=== PATIENT | male | born 1975 | race Caucasian/White ===

== ENCOUNTER 2024-02-16 23:53 | Emergency (ER) | payer OTHER, SELFPAY ==
[2024-02-16 23:57] VITALS: BP 130/82
[2024-02-17 00:15] VITALS: BMI 27.2
--- NOTE | 2024-02-17 00:32 | ED.GENMED ---
History of Present Illness
General
Chief Complaint: Cold/Flu/URI Symptoms
Source: patient
Exam Limitations: none
Time Seen by Provider: 02/17/24 00:20
Travel History
Have you had any contact with someone who has COVID-19?: No
Do you have any symptoms of coronavirus? Fever > 100 degrees, chills, cough, shortness of breath, sore throat, loss of taste or smell, muscle aches, or headache?: No
History of Present Illness
History of Present Illness:
48-year-old otherwise healthy male presents with onset of aches fatigue fever chills headache and some neck stiffness. Some nausea no vomiting. No light sensitivity. He notes a circular rash on the left side. No known tick bites. He is healthy
otherwise. No known sick contacts. No other complaints at this time
Past History
Past History
ED Past Medical History: Other (gout)
ED Past Surgical History: None
Phy Exam
Physical Exam
Physical Exam:
General: Well-appearing male no acute respiratory distress
HEENT: Normocephalic atraumatic neck is supple no adenopathy posterior pharynx without erythema or exudate
Heart: Regular rate and rhythm no murmurs
Lungs: Clear no wheeze or rales
Abdomen is soft nontender nondistended
Neurologic exam: No meningeal signs. No nuchal rigidity. Alert and oriented good muscle tone
Skin: Circular nonraised erythematous rash in the left side. This is nontender no fluctuance or induration
Extremities: No cyanosis
Course
Orders/Labs/Results
Orders:
Orders
02/17/24 00:22
COVID-19 Antigen Urgent
Source: Nasal Swab
Influenza A+B Rapid Molecular Urgent
CARLIN Source: Nasal Swab
Specimen Description:
Date Specimen was Collected: 02/17/24
Time Specimen was Collected: 00:18
02/17/24 00:58
Complete Blood Count/With Diff Urgent
Comprehensive Metabolic Panel Urgent
Lyme Progressive Urgent
02/17/24 01:46
Acetaminophen [Tylenol] 1,000 mg PO NOW STA
02/17/24 01:52
UA Reflex to Culture [Urinalysis Reflex To Culture] Urgent
Date Specimen was Collected: 02/17/24
Time Specimen was Collected: 00:18
Urine Microscopic Reflex Cult Urgent
02/17/24 02:02
Doxycycline [Vibramycin] 100 mg PO NOW STA
Abnormal Lab Results
02/17/24 02/17/24
00:58 01:52
RBC 4.35 L 10^6/uL
(4.70-6.10)
Hct 36.7 L %
(39.0-52.0)
Absolute Lymphs (auto) 0.7 L 10^3/uL
(1.2-3.4)
Neutrophils % 78.4 H %
(42.2-75.2)
Lymphocytes % 12.7 L %
(20.5-51.1)
Sodium 133 L mmol/L
(135-145)
Carbon Dioxide 21 L mmol/L
(22-30)
Glucose 105 H mg/dl
(70-99)
Ur Occult Blood Reflex 2+ A
(Negative)
Urine Bacteria (Reflex) Few A
(Negative)
02/17/24 00:58
02/17/24 00:58
Vital Signs
Initial and Last Documented VS:
Initial Vital Signs
Temp Pulse Resp BP Pulse Ox
98.9 F 88 18 130/82 98
02/16/24 23:57 02/16/24 23:57 02/16/24 23:57 02/16/24 23:57 02/16/24 23:57
Last Documented Vital Signs
Temp Pulse Resp BP Pulse Ox
101.6 F H 63 18 139/82 98
02/17/24 01:46 02/17/24 01:46 02/17/24 01:46 02/17/24 01:46 02/17/24 01:46
MDM/Problems Addressed
Differential Diagnosis Includes:
Myalgias fatigue fever chills. No meningeal signs on exam. Do not suspect meningitis. Rash circular in nature left side question possible insect bite versus erythema migrans of Lyme. Lyme test pending COVID and flu test pending. Urinalysis was
negative
*Critical Care Note
Total Time (30-74mins, 75-104mins- exclusive of procedures): Not Applicable
Update Note
Update Note:
COVID and flu negative. Blood work without significant finding. Lyme test is pending but given the presence of fever and circular rash on the left side will empirically cover for potential for Lyme with doxycycline. A prescription was provided
for this. He is stable for discharge. No indication for admission
ED Attending Note
-
Portions of this chart may have been created with voice recognition software.� Occasional wrong word or��sound alike� substitutions may have occurred due to the inherent limitations of voice recognition software.
Discharge Plan
Departure
Patient Disposition: Home (Routine Discharge)
Date of Disposition: 02/17/24
Time of Disposition: 02:23
Patient with high blood pressure during this ER visit?: No
Discharge Problem:
Fever
Instructions: Fever, Adult (DC)
Prescriptions:
New
doxycycline hyclate 100 mg capsule
100 mg PO BID Qty: 27 0RF
No Action
doxycycline hyclate 100 mg capsule
100 mg PO BID Qty: 14 0RF
tramadol 50 mg tablet
50 mg PO Q4H PRN (Reason: pain) Qty: 14 0RF
Referrals:
Gricelda Bauman MD [Family Provider] -
Activity Restrictions/Additional Instructions:
Stay hydrated. Continue with ibuprofen or Tylenol for fever. Use antibiotic as directed. You should receive a call if your Lyme test is positive. Please return here for worse
Interventions
Interventions:
*Risk Screen - Suicide Last Done: 02/17/24 00:16
*General Assessment Last Done: 02/17/24 00:16
*Neglect/Abuse Screening Last Done: 02/17/24 00:16
ED- Fall Risk Assessment Last Done: 02/17/24 01:03
*ED COVID-19 Vaccine History Last Done: 02/17/24 00:16
ED- Pulmonary Assessment Last Done: 02/17/24 01:00
Discharge Date and Time
Print Language: ICELANDIC
[2024-02-17 00:52] LABS: COVID-19 Antigen Negative (Negative)
[2024-02-17 01:04] LABS: % Basophils 0.5 % (0-2); % Eosinophils 0.2 % (0-6); % Immature Granulocytes 0.5 % (0-0.5); % Lymphocytes 12.7 % (20.5-51.1); % Monocytes 7.7 % (1.7-9.3); % Neutrophils 78.4 % (42.2-75.2); Absolute Lymphocytes 0.7 10^3/uL (1.2-3.4); Absolute Monocytes 0.4 10^3/uL (0.1-0.6); Absolute Neutrophils 4.4 10^3/uL (1.4-6.5); Hematocrit 36.7 % (39.0-52.0); Hemoglobin 13.2 g/dL (13.0-18.0); Mean Corpuscular Hgb 30.3 pg (27.0-31.0); Mean Corpuscular Volume 84.4 fL (80.0-94.0); Mean Platelet Volume 9.7 fL (7.4-10.4); Nucleated Red Blood Cells % 0 % (-); Platelet Count 155 10^3/uL (130-400); Red Blood Cell Count 4.35 10^6/uL (4.70-6.10); Red Cell Dist. Width 13.2 % (11.5-14.5); White Blood Cell Count 5.6 10^3/uL (4.8-10.8)
[2024-02-17 01:25] LABS: ALT (SGPT) 26 U/L (0-50); AST (SGOT) 35 U/L (17-59); Albumin 4.4 g/dl (3.5-5.0); Alkaline Phosphatase 56 U/L (38-126); Blood Urea Nitrogen 18 mg/dl (9-20); Calcium 9.1 mg/dl (8.4-10.2); Carbon Dioxide 21 mmol/L (22-30); Chloride 101 mmol/L (98-107); Estimated Creatinine Clearance 115 ml/min; Glucose 105 mg/dl (70-99); Potassium 3.9 mmol/L (3.5-5.1); Sodium 133 mmol/L (135-145); Total Bilirubin 0.5 mg/dl (0.2-1.3); eGFR > 60.00
[2024-02-17 01:46] VITALS: BP 139/82
[2024-02-17] MEDS: TYLENOL 1000 MG PO (01:50)
[2024-02-17 02:06] LABS: Urine Albumin Negative (Neg - Trace); Urine Bilirubin Negative (Negative); Urine Character Clear (Clear); Urine Color Yellow; Urine Glucose Negative (Negative); Urine Ketone Negative (Negative); Urine Leukocyte Negative (Negative); Urine Nitrite Negative (Negative); Urine Occult Blood 2+ (Negative); Urine Specific Gravity 1.015 (<1.030); Urine Urobilinogen Negative (Neg - 1+)
[2024-02-17 02:19] LABS: Urine Bacteria Few (Negative); Urine Red Blood Cell 0-2 /HPF (0-2); Urine Squamous Cell 0-2 /LPF (Few); Urine White Cell 0-2 /HPF (0-5)
[2024-02-17] MEDS: VIBRAMYCIN 100 MG PO (02:52)
[2024-02-19 14:33] LABS: Lyme Antibody Screen, EIA Negative (Negative)
== END 2024-02-17 02:52 | disposition home or self-care (01) ==
LOC: EMR 23:53
PROVIDERS: Emergency Medicine; Physician Assistant; EMERGENCY PHYSICIAN Emergency Medicine; FAMILY PHYSICIAN Internal Medicine
DX: R50.9 Fever, unspecified (principal); R53.83 Other fatigue; R51.9 Headache, unspecified; M43.6 Torticollis; R11.0 Nausea; R21 Rash and other nonspecific skin eruption; M79.10 Myalgia, unspecified site; Z11.52 Encounter for screening for COVID-19
CPT/HCPCS: 99283; 80053; 81003; 81015; 85025; 86618; 87502; 87811